=== PATIENT | male | born 1935 | race Caucasian/White ===

== ENCOUNTER → 2017-01-13 | Outpatient (CLI) | payer MEDICARE ==
[~2017-01-13] MED LIST: FLEXERIL10 MG PO; GABAPENTIN100 MG PO; GABAPENTIN300 M1 PO; HYZAAR1 TA1 PO; LORTAB 5/500 501 TAB PO; METFORMIN ER500 MG PO; OMEPRAZOLE20 MG PO; PERCOCET 5/3251 EACH PO; PRAVASTATIN SOD40 MG PO
--- NOTE | 2017-01-13 16:38 | RADIOLOGY REPORT PS360 ---
CHEST(2 VIEWS-NOT PORTABLE) HISTORY: COUGH,FEVER,SPUTUM ORDERING PHYSICIAN: Syed Robison MD PATIENT AGE: 81 years COMPARISON: None available FINDINGS: The cardiomediastinal silhouette and pulmonary vascularity are within normal limits. There are low lung volumes with bibasilar atelectatic changes. Cannot exclude superimposed infiltrate. Patchy density is present in the right midlung well which could be due to small area of infiltrate. No effusions apparent. Postsurgical changes lumbar spine. No acute bony anomalies. IMPRESSION: Bibasilar airspace disease consistent with atelectasis and/or infiltrate
== END ==
LOC: RAD 15:36
DX: R05 Cough (principal); R50.9 Fever, unspecified; R09.3 Abnormal sputum

== ENCOUNTER → 2017-08-01 | Outpatient (CLI) | payer MEDICARE ==
--- NOTE | 2017-08-01 12:15 | RADIOLOGY REPORT PS360 ---
ANKLE-LT-3 VIEWS HISTORY: LT LATERAL ANKLE PAIN ORDERING PHYSICIAN: Syed Robison MD PATIENT AGE: 82 years COMPARISON: 05/19/2012 FINDINGS: There is an old fracture of the distal fibula which is well healed. No acute fracture or dislocation evident. No significant arthritic change. Incidental vascular calcification and incidental calcaneal spur noted. IMPRESSION: Old distal fibular fracture, no acute finding.
== END ==
LOC: RAD 11:10
DX: M25.572 Pain in left ankle and joints of left foot (principal)